=== PATIENT | female | born 1950 | race Caucasian/White ===

== ENCOUNTER 2025-07-17 14:39 | Emergency (ER) | payer OTHER ==
[2025-07-17 16:37] LABS: ALT (SGPT) 65 U/L (Less than 34); AST (SGOT) 98 U/L (11-34); Albumin 3.5 g/dL (3.1-4.5); Alkaline Phosphatase 234 U/L (40-110); Anion Gap 15 mmol/L (10-20); BUN (Urea Nitrogen) 23 mg/dL (9.8-20.1); Bilirubin, Total 0.6 mg/dL (0.3-1.2); Calc. Creatinine Clearance 0 mL/min (70-130); Calcium 9.9 mg/dL (7.8-10.44); Carbon Dioxide 23 mmol/L (23-31); Chloride 102 mmol/L (98-107); Globulin 3.7 g/dL (2.4-3.5); Glucose 106 mg/dL (83-110); Potassium 3.9 mmol/L (3.5-5.1); Sodium 136 mmol/L (136-145)
[2025-07-17 16:41] LABS: #Basophils 0.03 10x3/uL (0.0-0.2); #Eosinophils 0.05 10x3/uL (0.0-0.5); #Monocytes 0.69 10x3/uL (0.0-1.1); #Neutrophils 7.46 10x3/uL (1.5-8.4); %Basophils 0.3 % (0.0-2.0); %Eosinophils 0.5 % (0.0-6.0); %Lymphocytes 10.2 % (18.0-47.0); %Monocytes 7.5 % (0.0-10.0); %Neutrophils 81.0 % (40.0-75.0); Hematocrit 30.4 % (34.9-44.5); Hemoglobin 9.2 g/dL (12.0-15.5); Mean Corpuscular Hemoglobin 21.1 pg (27.0-33.0); Mean Corpuscular Volume 69.6 fL (81.6-98.3); Platelet Count 495 10x3/uL (150-450); Red Blood Cell (RBC) Count 4.37 10x6/uL (3.90-5.03); White Blood Cell (WBC) Count 9.22 10x3/uL (3.5-10.5)
[2025-07-17 16:43] LABS: Troponin I Less than 0.010 ng/mL (< 0.028)
[2025-07-17 20:40] LABS: Anisocytosis SLIGHT = 6-15 cells (100X) (0-5/hpf)
[2025-07-17 20:41] LABS: Microcytosis MODERATE=15-30 cells (100X) (0-5/hpf)
[2025-07-17 20:42] LABS: Platelet Adequacy Comment Appears Increased
== END 2025-07-17 18:33 | disposition home or self-care (01) ==
LOC: CSHERS 14:39
DX: R53.1 Weakness (principal); R06.02 Shortness of breath; M25.562 Pain in left knee; G89.29 Other chronic pain; Z86.16 Personal history of COVID-19
CPT/HCPCS: 70450; 71045; 71046; 80053; 83880; 84484; 85025; 93005